=== PATIENT | female | born 1945 | race Caucasian/White ===

== ENCOUNTER 2018-05-05 08:12 | Emergency (ER) | payer OTHER ==
[~2018-05-05] VITALS: Ht 157.5 cm; Wt 106.6 kg
[~2018-05-05 08:12] MED LIST: ACETYLCYST200 MG/1 M PO; ALLEGRA-D 12 H1 EAC1 PO; AMBIEN 5 MG TABL5 M1 PO; ASA5UEC PO; ASA81BEC PO; BYSTOLIC 5 MG5 M1 PO; IMDUR 30 MG TAB30 M1 PO; LOSARTAN-HCTZ1 EAC3 PO; MOBIC15 MG PO; NITROQUICK0.4 MG SL; PRILOSEC 10MG C10 M1 PO; PROZAC 20 MG20 M1 PO; SINGULAIR4 MG PO
[2018-05-05] MEDS ORDERED: CRESTOR10 MG PO (08:17)
[2018-05-05] MEDS ORDERED: NORCO 5-325 TA1 EACH PO (11:46)
[2018-05-05 12:03] VITALS: BP 141/73
== END 2018-05-05 12:04 | disposition home or self-care (01) ==
LOC: M.ERS 08:12
DX: S43.004A Unspecified dislocation of right shoulder joint, initial encounter (principal); S05.11XA Contusion of eyeball and orbital tissues, right eye, initial encounter; I10 Essential (primary) hypertension; K21.9 Gastro-esophageal reflux disease without esophagitis; W01.0XXA Fall on same level from slipping, tripping and stumbling without subsequent striking against object, initial encounter; Y93.89 Activity, other specified; Y92.89 Other specified places as the place of occurrence of the external cause; Y99.8 Other external cause status

== ENCOUNTER → 2018-09-28 | Outpatient (CLI) | payer OTHER ==
[~2018-09-28] MED LIST changes: +CRESTOR10 MG PO; +NORCO 5-325 TA1 EACH PO
== END ==
LOC: M.RAD 13:35
DX: Z12.31 Encounter for screening mammogram for malignant neoplasm of breast (principal)

== ENCOUNTER → 2019-02-08 | Outpatient (CLI) | payer OTHER | LOC: M.RAD 15:10 | DX: M85.88 Other specified disorders of bone density and structure, other site (principal) ==

== ENCOUNTER → 2019-08-23 | Outpatient (CLI) | payer OTHER | LOC: M.ULTRA 13:55 | DX: I12.9 Hypertensive chronic kidney disease with stage 1 through stage 4 chronic kidney disease, or unspecified chronic kidney disease (principal); N18.3 Chronic kidney disease, stage 3 (moderate) ==

== ENCOUNTER → 2019-08-25 | Outpatient (CLI) | payer OTHER | LOC: M.CT 13:30 | DX: J98.4 Other disorders of lung (principal); I26.99 Other pulmonary embolism without acute cor pulmonale; J84.10 Pulmonary fibrosis, unspecified ==

== ENCOUNTER → 2020-02-07 | Outpatient (CLI) | payer OTHER | LOC: M.ULTRA 08:56 | PROVIDERS: ATTEND Family Medicine | DX: G45.9 Transient cerebral ischemic attack, unspecified (principal); R42 Dizziness and giddiness ==

== ENCOUNTER → 2020-08-27 | Outpatient (CLI) | payer OTHER ==
--- NOTE | 2020-08-27 12:38 | 2DMMODE ---
[place] [address] 2 D/M-MODE ECHOCARDIOGRAM Name: SUDHEEROLGA K Room: [facility]#: [id number] Admission: 08/27/20 Attend Phys: Kaela Coleman RN Discharge: Date of : 47 Date of Service: 08/27/20 1237 Report #: [id number] THIS REPORT FOR: cc: Roslyn Balderas Kathleen M. DO Liston, Michael J. MD [facility] ~ APPROVED REPORT Study performed: 08/27/2020 09:39:01 EXAM: Comprehensive 2D, Doppler, and color-flow Echocardiogram Patient Location: Out-Patient BSA: 2.07 HR: 68 bpm BP: 135/70 mmHg Other Information Study Quality: Fair Indications Dyspnea 2D Dimensions IVSd: 11.24 (7-11mm) LVOT Diam: 20.25 (18-24mm) LVDd: 38.90 mm PWd: 10.45 (7-11mm) Ascending Ao: 26.34 (22-36mm) LVDs: 27.90 (25-40mm) Aortic Root: 28.14 mm Volumes Left Atrial Volume (Systole) LA ESV Index: 9.10 mL/m2 Aortic Valve AoV Peak Vince.: 1.18 m/s AO Peak Gr.: 5.56 mmHg LVOT Max P.49 mmHg AO Mean Gr.: 2.84 mmHg LVOT Mean P.84 mmHg LVOT Max V: 0.93 m/s AO V2 VTI: 27.54 cm LVOT Mean V: 0.63 m/s SONU (VTI): 2.68 cm2 LVOT V1 VTI: 22.95 cm Mitral Valve E/A Ratio: 0.54 [place] [address] 2 D/M-MODE ECHOCARDIOGRAM Name: OLGA WILLARD Room: [facility]#: [id number] Admission: 08/27/20 Attend Phys: Kaela Coleman RN Discharge: Date of : 47 Date of Service: 08/27/20 1237 Report #: [id number] MV Decel. Time: 132.60 ms MV E Max Vince.: 0.46 m/s MV PHT: 38.46 ms MVA (PHT): 5.72 cm2 TDI E/Lateral E': 4.18 E/Medial E': 5.75 Medial E' Vince.: 0.08 m/s Lateral E' Vince.: 0.11 m/s Pulmonary Valve PV Peak Vince.: 0.86 m/s PV Peak Gr.: 2.98 mmHg Tricuspid Valve RAP Estimate: 5.00 mmHg TR Peak Gr.: 22.49 mmHg RVSP: 27.49 mmHg PA Pressure: 27.49 mmHg Left Ventricle The left ventricle is normal size. There is left ventricular systolic dyssynergy consistent with underlying bundle branch block. There is normal left ventricular wall thickness. Left ventricular systolic function is normal. LVEF is 55-60%. Grade I - abnormal relaxation pattern. Right Ventricle The right ventricle is normal size. The right ventricular systolic function is normal. Atria The left atrium size is normal. The right atrium size is normal. Aortic Valve The aortic valve is normal in structure. No aortic regurgitation is present. There is no aortic valvular stenosis. Mitral Valve The mitral valve is normal in structure. There is no mitral valve regurgitation noted. No evidence of mitral valve stenosis. Tricuspid Valve The tricuspid valve is normal in structure. Mild tricuspid regurgitation. No pulmonary hypertension[place] [address] 2 D/M-MODE ECHOCARDIOGRAM Name: OLGA WILLARD Room: [facility]#: [id number] Admission: 08/27/20 Attend Phys: Kaela Coleman RN Discharge: Date of : 47 Date of Service: 08/27/20 1237 Report #: [id number] The pulmonary valve is normal in structure. There is no pulmonic valvular regurgitation. Great Vessels The aortic root is normal in size. IVC is normal in size and collapses >50% with inspiration. Pericardium There is no pericardial effusion. <Conclusion> The left ventricle is normal size. There is normal left ventricular wall thickness. Left ventricular systolic function is normal. LVEF is 55-60%. Grade I - abnormal relaxation pattern. There is left ventricular systolic dyssynergy consistent with underlying bundle branch block. Mild tricuspid regurgitation. No pulmonary hypertension. IVC is normal in size and collapses >50% with inspiration. <ELECTRONICALLY SIGNED> By: Boris Khan MD, FACC 08/27/20 1237 1237 1237 Boris Khan MD, FACC /INF
== END ==
LOC: M.CRD 09:49
PROVIDERS: ATTEND Registered Nurse
DX: I07.1 Rheumatic tricuspid insufficiency (principal)

== ENCOUNTER → 2020-09-05 | Outpatient (CLI) | payer OTHER ==
--- NOTE | 2020-09-24 18:53 | SLEEP ---
[address] [address] SLEEP STUDY REPORT Name: OLGA WILLARD Room: [facility].#: [id number] Admission: 09/05/20 Attend Phys: JAY Kumar Discharge: Date of : 47 Report #: [id number] THIS REPORT FOR: cc: Roslyn Balderas Kathleen M. DO ~ Chip Nj MD This study has been reviewed in its entirety by a board certified sleep specialist DATE OF SERVICE: 09/06/2020 HOME SLEEP STUDY INTERPRETATION: Total duration of the study is 544 minutes. During this time duration, we recorded 59 obstructive apneas in addition to 70 hypopneas with an overall apnea-hypopnea index of 31.2. Body position data indicates the patient was observed in the supine position for 295 minutes. The rest of the time, the patient was in other positions. There is no obvious positional variation as most of the sleep time was in the supine position. We also did record multiple desaturations. Overall, the patient spent 23.3 minutes below an O2 saturation of 90%, out of which 4.5 minutes were spent below an O2 saturation of 88%. Mean heart rate was 62. IMPRESSION: Severe obstructive sleep apnea with an apnea-hypopnea index of 31.2 with mild nocturnal hypoxemia as described above. The patient is supine for most of the sleep study. RECOMMENDATIONS: Options include the use of a CPAP auto titrated device or proceeding to an in-lab sleep study for positive airway pressure titration. Considering a moderately elevated apnea-hypopnea index, I would favor proceeding to an in-lab sleep study for positive airway pressure titration. <ELECTRONICALLY SIGNED> By: Chip Nj MD 09/24/20 1853 1758 [id number] Nj MD /nt
== END ==
LOC: M.SLEEPLAB 08-30 20:49 → M.PUL 11:15
PROVIDERS: ATTEND Registered Nurse
DX: G47.33 Obstructive sleep apnea (adult) (pediatric) (principal)

== ENCOUNTER → 2020-11-12 | Outpatient (CLI) | payer OTHER | LOC: M.RAD 09:56 | PROVIDERS: ATTEND Family Medicine | DX: Z12.31 Encounter for screening mammogram for malignant neoplasm of breast (principal) ==

== ENCOUNTER → 2021-07-23 | Outpatient (CLI) | payer OTHER ==
[~2021-07-23] MED LIST changes: +AZELASTINE205.5 MCG/ NARES; +BUSPIRONE HCL5 MG PO; +NAPROXEN375 MG PO; +ZESTRIL20 MG PO; +vitamin d3 PO
== END ==
LOC: M.PC 09:11
PROVIDERS: ATTEND Physical Medicine & Rehabilitation
DX: M47.816 Spondylosis without myelopathy or radiculopathy, lumbar region (principal); M51.26 Other intervertebral disc displacement, lumbar region; M19.011 Primary osteoarthritis, right shoulder; M25.562 Pain in left knee; I10 Essential (primary) hypertension; I25.10 Atherosclerotic heart disease of native coronary artery without angina pectoris; Z90.49 Acquired absence of other specified parts of digestive tract; Z88.0 Allergy status to penicillin

== ENCOUNTER → 2021-07-30 | Outpatient (CLI) | payer OTHER | LOC: M.PC 09:36 | PROVIDERS: ATTEND Physical Medicine & Rehabilitation | DX: M47.816 Spondylosis without myelopathy or radiculopathy, lumbar region (principal); M51.26 Other intervertebral disc displacement, lumbar region; M25.511 Pain in right shoulder; M19.011 Primary osteoarthritis, right shoulder; M25.562 Pain in left knee; I10 Essential (primary) hypertension; I25.10 Atherosclerotic heart disease of native coronary artery without angina pectoris; Z90.49 Acquired absence of other specified parts of digestive tract; Z88.0 Allergy status to penicillin ==

== ENCOUNTER → 2021-08-20 | Outpatient (CLI) | payer OTHER | END | disposition home or self-care (01) | LOC: M.PC 08:31 | PROVIDERS: ATTEND Physical Medicine & Rehabilitation | DX: M25.511 Pain in right shoulder (principal); M19.011 Primary osteoarthritis, right shoulder; M25.562 Pain in left knee; M51.16 Intervertebral disc disorders with radiculopathy, lumbar region; M47.816 Spondylosis without myelopathy or radiculopathy, lumbar region; I10 Essential (primary) hypertension; I25.10 Atherosclerotic heart disease of native coronary artery without angina pectoris; Z98.890 Other specified postprocedural states; Z79.899 Other long term (current) drug therapy; Z90.49 Acquired absence of other specified parts of digestive tract; Z90.710 Acquired absence of both cervix and uterus; Z88.0 Allergy status to penicillin ==